=== PATIENT | female | born 1955 | race African-American/Black ===

== ENCOUNTER 2020-06-14 10:29 | Inpatient (IN) | payer BC ==
[2020-06-14] VITALS (17 sets, daily range): BP systolic 61–180; BP diastolic 24–72
[~2020-06-14] VITALS: Ht 162.6 cm; Wt 63.5 kg
[2020-06-14] MEDS ORDERED: SODIUM CHLORIDE 0.9% 1,000 ML IV ONE (12:28)
[2020-06-14 12:56] LABS: CHLORIDE 98 mEq/L (98-107); HEMATOCRIT. 23.6 % (36.0-48.0); MEAN CORPUSCULAR HEMOGLOBIN 28.3 pg (28.0-32.0); MEAN CORPUSCULAR VOLUME 83.3 fL (81.0-99.0); MEAN PLATELET VOLUME 8.5 fl (7.4-10.4); PLATELET 65 x1000/uL (130-400); RED BLOOD CELL COUNT 2.83 mill/uL (4.2-5.4); RED CELL DISTRIBUTION WIDTH 23.1 % (11.6-14.6)
[2020-06-14] MEDS ORDERED: PIPERACILLIN/TAZ 3.375G PREMIX 50 ML IV ONE (13:15)
[2020-06-14] MEDS ORDERED: VANCOMYCIN 1 G PREMIX 200 ML IV ONE (13:15)
[2020-06-14] MEDS ORDERED: SODIUM CHLORIDE 0.9% 1000ML BAG (SEPSIS BOLUS) IV ONE (13:15)
[2020-06-14 13:26] LABS: PROTHROMBIN TIME > 100.0 sec (9.6-11.0)
[2020-06-14 13:29] LABS: INR > 10.0
[2020-06-14 13:47] LABS: NUCLEATED RED BLOOD CELLS 1 /100 WBC; PLATELET ESTIMATE DECREASED
[2020-06-14] MEDS ORDERED: ONDANSETRON HCL 4MG/2ML INJ IV PRN (14:30)
[2020-06-14] MEDS ORDERED: SODIUM BICARBONATE 8.4% MEQ/ML 50ML VIAL IV ONE (14:50)
[2020-06-14] MEDS ORDERED: SODIUM BICARBONATE 150 MEQ in DEXTROSE 5% WATER 1,000 ML IV SCH (15:00)
[2020-06-14] MEDS ORDERED: SODIUM BICARBONATE 150 MEQ in SODIUM CHLORIDE 0.45% 1,000 ML IV SCH (15:00)
[2020-06-14 15:10] LABS: CREATINE KINASE 127 IU/L (26-192)
[2020-06-14 15:30] LABS: BG CARBOXYHEMOGLOBIN 0.8 % (0.5-1.5); BG DEOXYHEMOGLOBIN 2.4 % (0.0-5.0); BG FRACTION INSPIRED OXYGEN 21; BG HCO3 ACT 3.3 mmol/L (22.0-26.0); BG METHEMOGLOBIN 0.4 % (0.0-1.5); BG OXYGEN SATURATION 97.6 % (92.0-98.5); BG OXYHEMOGLOBIN 96.4 % (94.0-97.0); BG PCO2 10.8 mmHg (35.0-45.0); BG PH 7.107 (7.350-7.450); BG PO2 132.4 mmHg (75.0-100.0); BG SAMPLE SITE RIGHT RADIAL; BG TOTAL HEMOGLOBIN 7.5 g/dL (12.0-18.0); BG VENT MODE ROOM AIR
[2020-06-14 15:56] LABS: CLARITY URINE CLOUDY (CLEAR); COLOR URINE DARK YELLOW (YELLOW); KETONES URINE NEGATIVE (NEGATIVE); LEUKOCYTE ESTERASE URINE 1+ (NEGATIVE); NITRITE URINE NEGATIVE (NEGATIVE); OCCULT BLOOD URINE NEGATIVE (NEGATIVE); PH URINE 5.5 (4.5-8.0); PROTEIN URINE 1+ (NEGATIVE); SPECIFIC GRAVITY URINE 1.014 (1.005-1.030)
[2020-06-14] MEDS ORDERED: PHYTONADIONE 10 MG/10 ML ORALSYR PO NR (16:45)
[2020-06-14] MEDS ORDERED: SODIUM CHLORIDE 0.9% 500 ML IV NR (20:30)
[2020-06-14] MEDS ORDERED: DEXTROSE 50% WATER 50ML SYRINGE IV NR (21:45)
[2020-06-14 21:47] LABS: BG DEOXYHEMOGLOBIN 6.5 % (0.0-5.0); BG FRACTION INSPIRED OXYGEN 28; BG HCO3 ACT 3.7 mmol/L (22.0-26.0); BG METHEMOGLOBIN 0.3 % (0.0-1.5); BG OXYGEN SATURATION 93.3 % (92.0-98.5); BG OXYHEMOGLOBIN 91.2 % (94.0-97.0); BG PCO2 16.9 mmHg (35.0-45.0); BG PH 6.953 (7.350-7.450); BG PO2 96.7 mmHg (75.0-100.0); BG SAMPLE SITE RIGHT RADIAL; BG TOTAL HEMOGLOBIN 5.8 g/dL (12.0-18.0); BG VENT MODE NASAL CANNULA
[2020-06-14] MEDS ORDERED: SODIUM BICARBONATE 8.4% 1 MEQ/ML 50ML SYR IV NR (22:00)
[2020-06-14] MEDS ORDERED: NOREPINEPHRINE 32 MG in DEXT 5% WATER 468 ML IV PRN (22:00)
[2020-06-14] MEDS ORDERED: DEXT 10% WATER 1,000 ML IV SCH (23:00)
[2020-06-15] VITALS (95 sets, daily range): BP systolic 42–140; BP diastolic 19–81
[2020-06-15 00:48] LABS: BG BASE EXCESS -21.7 mmol/L (-2.0-2.0); BG CARBOXYHEMOGLOBIN 0.9 % (0.5-1.5); BG DEOXYHEMOGLOBIN 6.1 % (0.0-5.0); BG FRACTION INSPIRED OXYGEN 36; BG HCO3 ACT 6.3 mmol/L (22.0-26.0); BG METHEMOGLOBIN 1.4 % (0.0-1.5); BG OXYGEN SATURATION 93.8 % (92.0-98.5); BG OXYHEMOGLOBIN 91.6 % (94.0-97.0); BG PCO2 21.8 mmHg (35.0-45.0); BG PO2 94.4 mmHg (75.0-100.0); BG SAMPLE SITE RIGHT RADIAL; BG TOTAL HEMOGLOBIN 5.7 g/dL (12.0-18.0); BG VENT MODE NASAL CANNULA
[2020-06-15] MEDS ORDERED: SODIUM BICARBONATE 150 MEQ in SODIUM CHLORIDE 0.45% 1,000 ML IV SCH (01:00)
[2020-06-15] MEDS ORDERED: DEXTROSE 5% WATER 1,000 ML IV SCH ×2 (01:45→02:30)
[2020-06-15] MEDS ORDERED: SODIUM BICARBONATE 8.4% 1 MEQ/ML 50ML SYR IV NR ×6 (01:45→23:00)
[2020-06-15] MEDS ORDERED: LACTULOSE 20G/30ML UDC PO SCH (02:00)
[2020-06-15] MEDS ORDERED: SODIUM BICARBONATE 150 MEQ in DEXT 5%/0.45% NACL 1000ML 1,000 ML IV SCH (04:00)
[2020-06-15] MEDS: SODIUM BICARBONATE 150 MEQ in DEXTROSE 5% WATER 1,000 ML IV SCH ×2 (04:20→18:14)
[2020-06-15 05:55] LABS: MEAN CORPUSCULAR HEMOGLOBIN 28.3 pg (28.0-32.0); MEAN CORPUSCULAR VOLUME 85.7 fL (81.0-99.0); RED BLOOD CELL COUNT 1.92 mill/uL (4.2-5.4); RED CELL DISTRIBUTION WIDTH 23.6 % (11.6-14.6)
[2020-06-15 06:00] LABS: CHLORIDE 96 mEq/L (98-107)
[2020-06-15 06:28] LABS: HEMOGLOBIN. 5.4 g/dL (12.0-16.0)
[2020-06-15 06:29] LABS: HEMATOCRIT. 16.5 % (36.0-48.0)
[2020-06-15 06:30] LABS: FIBRINOGEN 101 mg/dL (200-400); HEPATITIS B SURFACE ANTIGEN NEGATIVE
[2020-06-15 06:59] LABS: HEPATITIS A AB IGM NEGATIVE (NEGATIVE)
[2020-06-15 07:04] LABS: INR > 10.0
[2020-06-15 07:05] LABS: PROTHROMBIN TIME > 100.0 sec (9.6-11.0)
[2020-06-15 07:49] LABS: BG BASE EXCESS -19.1 mmol/L (-2.0-2.0); BG CARBOXYHEMOGLOBIN 1.4 % (0.5-1.5); BG DEOXYHEMOGLOBIN 14.7 % (0.0-5.0); BG HCO3 ACT 9.4 mmol/L (22.0-26.0); BG METHEMOGLOBIN 0.8 % (0.0-1.5); BG OXYHEMOGLOBIN 83.1 % (94.0-97.0); BG PCO2 34.1 mmHg (35.0-45.0); BG SAMPLE SITE RIGHT RADIAL; BG TOTAL HEMOGLOBIN 5.7 g/dL (12.0-18.0); BG VENT MODE NASAL CANNULA
[2020-06-15] MEDS ORDERED: DEXTROSE 50% WATER 50ML SYRINGE IV PRN (08:00)
[2020-06-15] MEDS: BLOOD SUGAR DIAGNOSTIC STRIP TEST SCH ×4 (08:15→23:23)
[2020-06-15] MEDS ORDERED: DEXT 10% WATER 1,000 ML IV SCH (08:30)
[2020-06-15] MEDS ORDERED: SODIUM CHLORIDE 0.9% 1,000 ML IV STA (08:53)
[2020-06-15] MEDS ORDERED: VASOPRESSIN 10 UNIT in SODIUM CHLORIDE 0.9% 99.5 ML IV PRN (09:00)
[2020-06-15 09:18] LABS: NUCLEATED RED BLOOD CELLS 13 /100 WBC
[2020-06-15 09:19] LABS: PLATELET ESTIMATE DECREASED
[2020-06-15] MEDS ORDERED: ETOMIDATE 2MG/ML 10ML VIAL IV ONE (09:19)
[2020-06-15] MEDS ORDERED: VECURONIUM BROMIDE 10 MG/VIAL IV ONE (09:19)
[2020-06-15 09:20] LABS: MEAN PLATELET VOLUME 8.3 fl (7.4-10.4); PLATELET 58 x1000/uL (130-400)
[2020-06-15 10:03] LABS: BG BASE EXCESS -16.3 mmol/L (-2.0-2.0); BG CARBOXYHEMOGLOBIN 2.1 % (0.5-1.5); BG DEOXYHEMOGLOBIN 0.2 % (0.0-5.0); BG FRACTION INSPIRED OXYGEN 100; BG HCO3 ACT 9.9 mmol/L (22.0-26.0); BG METHEMOGLOBIN 0.5 % (0.0-1.5); BG OXYGEN SATURATION 99.8 % (92.0-98.5); BG OXYHEMOGLOBIN 97.2 % (94.0-97.0); BG PCO2 24.6 mmHg (35.0-45.0); BG PH 7.224 (7.350-7.450); BG PO2 397.7 mmHg (75.0-100.0); BG SAMPLE SITE RIGHT BRACHIAL; BG TIDAL VOLUME(mL) 500 mL; BG TOTAL HEMOGLOBIN 4.6 g/dL (12.0-18.0); BG VENT MODE VENT - A/C; BG VENT RATE 24 set
[2020-06-15] MEDS ORDERED: SODIUM BICARBONATE 8.4% 1 MEQ/ML 50ML SYR IV ONE (10:15)
[2020-06-15] MEDS ORDERED: LORAZEPAM 2MG/ML CPJ IV PRN (10:15)
[2020-06-15] MEDS: PHENYLEPHRINE 40 MG in DEXT 5% WATER 246 ML IV PRN ×2 (10:39→21:41)
[2020-06-15] MEDS ORDERED: CEFEPIME 1,000 MG in DEXTROSE 5% WATER 50 ML IV SCH (12:00)
[2020-06-15] MEDS: METRONIDAZOLE 500 MG PREMIX 100 ML IV SCH ×2 (13:00→20:11)
[2020-06-15] MEDS: LACTULOSE 20G/30ML UDC PO SCH ×2 (14:46→17:45)
[2020-06-15] MEDS ORDERED: LACTULOSE 300 ML in WATER FOR IRRIGATION,STERILE 700 ML IR NR (15:30)
[2020-06-15 15:35] LABS: BG BASE EXCESS -16.3 mmol/L (-2.0-2.0); BG DEOXYHEMOGLOBIN 8.4 % (0.0-5.0); BG HCO3 ACT 9.5 mmol/L (22.0-26.0); BG METHEMOGLOBIN 0.4 % (0.0-1.5); BG OXYGEN SATURATION 91.5 % (92.0-98.5); BG OXYHEMOGLOBIN 90.2 % (94.0-97.0); BG PCO2 22.4 mmHg (35.0-45.0); BG PH 7.246 (7.350-7.450); BG PO2 76.9 mmHg (75.0-100.0); BG SAMPLE SITE RIGHT RADIAL; BG TIDAL VOLUME(mL) 500 mL; BG TOTAL HEMOGLOBIN 6.7 g/dL (12.0-18.0); BG VENT MODE VENT - A/C; BG VENT RATE 24 set
[2020-06-15 15:37] LABS: HEMATOCRIT 24.2 % (36.0-48.0); HEMOGLOBIN 7.9 g/dL (12.0-16.0)
[2020-06-15 18:07] LABS: CHLORIDE 94 mEq/L (98-107)
[2020-06-15] MEDS ORDERED: VANCOMYCIN 750 MG PREMIX 150 ML IV SCH (20:00)
[2020-06-15] MEDS ORDERED: ATORVASTATIN CALCIUM 40MG TABLET PO SCH (21:00)
[2020-06-15] MEDS ORDERED: RIFAXIMIN 550 MG TABLET PO SCH (21:00)
[2020-06-15 21:48] LABS: BG FRACTION INSPIRED OXYGEN 50; BG PH 7.138 (7.350-7.450); BG PO2 95.4 mmHg (75.0-100.0); BG SAMPLE SITE LEFT BRACHIAL; BG TIDAL VOLUME(mL) 500 mL; BG TOTAL HEMOGLOBIN < 4.5 g/dL (12.0-18.0); BG VENT MODE VENT - A/C; BG VENT RATE 24 set
[2020-06-15] MEDS ORDERED: HYDROCORTISONE SOD SUCCINATE 100 MG/2 ML VIAL IV SCH (22:00)
[2020-06-15] MEDS ORDERED: DOPAMINE 400MG/250ML PREMIX 250 ML IV PRN (22:45)
[2020-06-16] MEDS ORDERED: PANTOPRAZOLE SODIUM 40 MG/VIAL IV SCH (09:00)
[2020-06-16 17:09] LABS: ANTI-NUCLEAR ANTIBODIES DIRECT Negative (Negative)
== END 2020-06-16 01:26 | disposition expired | DRG 871 ==
LOC: ER 10:29 → 3WST 14:14 → EDBEDREQ 14:16 → ENRESERV 15:01 → CVICU 21:18
PROVIDERS: ADMIT Internal Medicine; ATTEND Internal Medicine
PROC: 5A1935Z Respiratory Ventilation, Less than 24 Consecutive Hours (ICD-10-PCS; principal; 2020-06-15)
PROC: 0BH17EZ Insertion of Endotracheal Airway into Trachea, Via Natural or Artificial Opening (ICD-10-PCS; 2020-06-15)
PROC: 5A12012 Performance of Cardiac Output, Single, Manual (ICD-10-PCS; 2020-06-15)
PROC: 30233K1 Transfusion of Nonautologous Frozen Plasma into Peripheral Vein, Percutaneous Approach (ICD-10-PCS; 2020-06-15)
PROC: 30233N1 Transfusion of Nonautologous Red Blood Cells into Peripheral Vein, Percutaneous Approach (ICD-10-PCS; 2020-06-15)
PROC: 30233R1 Transfusion of Nonautologous Platelets into Peripheral Vein, Percutaneous Approach (ICD-10-PCS; 2020-06-15)
DX: A41.9 Sepsis, unspecified organism (principal); G92 Toxic encephalopathy; J96.00 Acute respiratory failure, unspecified whether with hypoxia or hypercapnia; K72.00 Acute and subacute hepatic failure without coma; R65.21 Severe sepsis with septic shock; C22.9 Malignant neoplasm of liver, not specified as primary or secondary; C79.51 Secondary malignant neoplasm of bone; D68.59 Other primary thrombophilia; E87.1 Hypo-osmolality and hyponatremia; N17.9 Acute kidney failure, unspecified; D64.9 Anemia, unspecified; D69.6 Thrombocytopenia, unspecified; E16.2 Hypoglycemia, unspecified; E78.5 Hyperlipidemia, unspecified; E86.9 Volume depletion, unspecified; I27.21 Secondary pulmonary arterial hypertension; N18.9 Chronic kidney disease, unspecified; R16.2 Hepatomegaly with splenomegaly, not elsewhere classified; R09.2 Respiratory arrest; Z51.5 Encounter for palliative care; Z79.01 Long term (current) use of anticoagulants; Z85.05 Personal history of malignant neoplasm of liver; Z88.8 Allergy status to other drugs, medicaments and biological substances
CPT/HCPCS: 36415; 36600; 71045; 76700; 78580; 80053; 80061; 81003; 82105; 82140; 82270; 82375; 82550; 82805; 82962; 83605; 83735; 83880; 84145; 84484; 85014; 85018; 85025; 85384; 86038; 86160; 86705; 86709; 86803; 86850; 86900; 86920; 86927; 87070; 87340; 93005; 93306; 93970; 94003; 99285; J0692; J1265; J1720; J2370; J2405; J2543; J3370; J3430; J3490; J7030; J7050; J7060; J7070; P9016; P9017; P9034